=== PATIENT | male | born 1940 | race African-American/Black ===

== ENCOUNTER 2018-11-17 10:00 | Emergency (ER) | payer MEDICARE ==
[~2018-11-17] VITALS: Ht 165.1 cm; Wt 72.0 kg
[2018-11-17 10:05] VITALS: BP 112/60
== END 2018-11-17 10:37 | disposition home or self-care (01) ==
LOC: ER 10:00
DX: T16.2XXA Foreign body in left ear, initial encounter (principal); I12.0 Hypertensive chronic kidney disease with stage 5 chronic kidney disease or end stage renal disease; N18.6 End stage renal disease; X58.XXXA Exposure to other specified factors, initial encounter; Y93.89 Activity, other specified; Y92.89 Other specified places as the place of occurrence of the external cause; Y99.8 Other external cause status; Z99.2 Dependence on renal dialysis
CPT/HCPCS: 99283

== ENCOUNTER 2020-11-11 09:48 | Inpatient (IN) | payer MEDICARE ==
[~2020-11-11] VITALS: Ht 172.7 cm; Wt 83.0 kg
[2020-11-11 10:42] LABS: BASOPHILS % 0.4 % (0.0-2.0); EOSINOPHILS % 1.1 % (0.0-5.0); HEMATOCRIT. 35.6 % (42.0-52.0); LYMPHOCYTES % 19.1 % (20.0-50.0); MEAN CORPUSCULAR HEMOGLOBIN 33.3 pg (28.0-32.0); MEAN CORPUSCULAR VOLUME 98.7 fL (80.0-94.0); MEAN PLATELET VOLUME 9.2 fl (7.4-10.4); MONOCYTES % 13.3 % (2.0-8.0); NEUTROPHILS % 66.1 % (40.0-76.0); PLATELET 110 x1000/uL (130-400); RED CELL DISTRIBUTION WIDTH 15.2 % (11.6-14.6)
[2020-11-11 10:55] LABS: INR 1.1; PROTHROMBIN TIME 11.3 sec (9.6-11.0)
[2020-11-11 10:58] LABS: CHLORIDE 101 mEq/L (98-107)
[2020-11-11] MEDS ORDERED: LORAZEPAM 2MG/ML CPJ IV ONE (11:00)
[2020-11-11] MEDS ORDERED: SODIUM CHLORIDE 0.9% 1,000 ML IV ONE (11:00)
[2020-11-11] MEDS ORDERED: SODIUM CHLORIDE 0.9% 500 ML IV ONE (11:15)
[2020-11-11] MEDS ORDERED: LEVETIRACETAM 100MG/ML ORAL SYR PO ONE (13:15)
[2020-11-11] MEDS ORDERED: LEVETIRACETAM 500MG TABLET PO NR (13:45)
[2020-11-11 17:04] LABS: HEMATOCRIT 28.1 % (42.0-52.0); HEMOGLOBIN 9.7 g/dL (14.0-18.0); MEAN CORPUSCULAR HEMOGLOBIN 33.8 pg (28.0-32.0); MEAN CORPUSCULAR VOLUME 98.2 fL (80.0-94.0); PLATELET 95 x1000/uL (130-400); RED BLOOD CELL COUNT 2.86 mill/uL (4.7-6.1); RED CELL DISTRIBUTION WIDTH 14.6 % (11.6-14.6)
[2020-11-11] MEDS ORDERED: HYDROCODONE/ACETAMINOPHEN 5/325MG TABLET PO PRN (18:30)
[2020-11-11] MEDS ORDERED: GUAIFENESIN 200MG/10ML SUGAR FREE UDC PO PRN (18:30)
[2020-11-11] MEDS ORDERED: DOCUSATE SODIUM 100MG CAPSULE PO PRN (18:30)
[2020-11-11] MEDS ORDERED: ACETAMINOPHEN 325MG TABLET PO PRN (18:30)
[2020-11-11] MEDS ORDERED: ONDANSETRON HCL 4MG/2ML INJ IV PRN (18:30)
[2020-11-11] MEDS ORDERED: LORAZEPAM 2MG/ML CPJ IV PRN (18:30)
[2020-11-12 07:25] LABS: CHLORIDE 106 mEq/L (98-107)
[2020-11-12 11:00] VITALS: BP 127/38
[2020-11-12 11:52] VITALS: BP 127/38
[2020-11-12 12:16] LABS: BASOPHILS % 0.6 % (0.0-2.0); EOSINOPHILS % 0.8 % (0.0-5.0); HEMATOCRIT. 24.8 % (42.0-52.0); HEMOGLOBIN. 8.7 g/dL (14.0-18.0); LYMPHOCYTES % 17.8 % (20.0-50.0); MEAN CORPUSCULAR HEMOGLOBIN 34.2 pg (28.0-32.0); MEAN CORPUSCULAR VOLUME 98.2 fL (80.0-94.0); MEAN PLATELET VOLUME 8.9 fl (7.4-10.4); MONOCYTES % 9.6 % (2.0-8.0); NEUTROPHILS % 71.2 % (40.0-76.0); PLATELET 111 x1000/uL (130-400); RED BLOOD CELL COUNT 2.53 mill/uL (4.7-6.1); RED CELL DISTRIBUTION WIDTH 15.2 % (11.6-14.6)
[2020-11-12] MEDS: AMLODIPINE 10MG TABLET PO SCH (14:16)
[2020-11-12 16:00] VITALS: BP 103/47
[2020-11-12] MEDS ORDERED: FINA1TAB18 MT (18:54)
[2020-11-12] MEDS ORDERED: COR3 MT (18:54)
[2020-11-12] MEDS ORDERED: NEPVIT MT (18:54)
[2020-11-12] MEDS ORDERED: ASPI-1406 MT (18:54)
[2020-11-12] MEDS ORDERED: TAMS-11 PO (18:54)
[2020-11-12] MEDS ORDERED: FOLI-43 MT (18:54)
[2020-11-12 20:00] VITALS: BP 122/60
[2020-11-12] MEDS: LEVETIRACETAM 500MG TABLET PO SCH (21:31)
[2020-11-13] VITALS: BP 105/38
[2020-11-13 04:00] VITALS: BP 101/40
[2020-11-13 08:00] VITALS: BP 102/47
[2020-11-13] MEDS: LEVETIRACETAM 500MG TABLET PO SCH (09:33)
[2020-11-13] MEDS: AMLODIPINE 10MG TABLET PO SCH (09:34)
[2020-11-13 11:12] VITALS: BP 115/59
[2020-11-13 12:00] VITALS: BP 115/59
== END 2020-11-13 14:40 | disposition home or self-care (01) | DRG 314 ==
LOC: ER 10:05 → MICUSO 17:25 → EDBEDREQSVC 21:09 → EDBEDREQTM 21:09 → 5WST 11-12 09:12
PROVIDERS: ADMIT Hospitalist; ATTEND Hospitalist
PROC: 5A1D70Z Performance of Urinary Filtration, Intermittent, Less than 6 Hours Per Day (ICD-10-PCS; principal; 2020-11-11)
PROC: 4A00X4Z Measurement of Central Nervous Electrical Activity, External Approach (ICD-10-PCS; 2020-11-13)
DX: T82.838A Hemorrhage due to vascular prosthetic devices, implants and grafts, initial encounter (principal); E43 Unspecified severe protein-calorie malnutrition; N18.6 End stage renal disease; D62 Acute posthemorrhagic anemia; E87.1 Hypo-osmolality and hyponatremia; I12.0 Hypertensive chronic kidney disease with stage 5 chronic kidney disease or end stage renal disease; G40.909 Epilepsy, unspecified, not intractable, without status epilepticus; E87.5 Hyperkalemia; D69.6 Thrombocytopenia, unspecified; Y84.1 Kidney dialysis as the cause of abnormal reaction of the patient, or of later complication, without mention of misadventure at the time of the procedure; Y92.89 Other specified places as the place of occurrence of the external cause; Z99.2 Dependence on renal dialysis; Z68.27 Body mass index [BMI] 27.0-27.9, adult; Z79.899 Other long term (current) drug therapy
CPT/HCPCS: 36415; 80053; 85025; 85027; 86850; 86900; 93005; 95816; 99291; J7030; J7040

== ENCOUNTER 2020-12-05 07:06 | Inpatient (IN) | payer MEDICARE ==
[2020-12-05] VITALS (7 sets, daily range): BP systolic 105–130; BP diastolic 43–67
[~2020-12-05] VITALS: Ht 165.1 cm; Wt 80.8 kg
[~2020-12-05 07:06] MED LIST: ASPI-1406 MT; COR3 MT; FINA1TAB18 MT; FOLI-43 MT; NEPVIT MT; TAMS-11 PO
[2020-12-05 07:28] LABS: HEMATOCRIT. 22.2 % (42.0-52.0); HEMOGLOBIN. 7.4 g/dL (14.0-18.0); LYMPHOCYTES % 44.1 % (20.0-50.0); MEAN CORPUSCULAR HEMOGLOBIN 34.4 pg (28.0-32.0); MEAN CORPUSCULAR VOLUME 104.1 fL (80.0-94.0); MEAN PLATELET VOLUME 8.1 fl (7.4-10.4); MONOCYTES % 14.6 % (2.0-8.0); NEUTROPHILS % 34.3 % (40.0-76.0); PLATELET 179 x1000/uL (130-400); RED BLOOD CELL COUNT 2.14 mill/uL (4.7-6.1); RED CELL DISTRIBUTION WIDTH 14.2 % (11.6-14.6)
[2020-12-05 07:37] LABS: CHLORIDE 108 mEq/L (98-107)
[2020-12-05] MEDS ORDERED: LIDOCAINE HCL/EPINEPHRINE 1%-EPI 1:100,000 50 ML VIAL INFIL ONE (07:45)
[2020-12-05] MEDS ORDERED: TRANEXAMIC ACID 1,000 MG/10 ML IV ONE (08:00)
[2020-12-05 08:23] LABS: INR 1.1; PARTIAL THROMBOPLASTIN TIME 23.6 sec (23.4-31.0); PROTHROMBIN TIME 11.8 sec (9.6-11.0)
[2020-12-05] MEDS ORDERED: TRANEXAMIC ACID 1,000 MG in SODIUM CHLORIDE 0.9% 100 ML IV SCH (08:30)
[2020-12-05 08:47] LABS: BG BASE EXCESS -2.6 mmol/L (-2.0-2.0); BG CARBOXYHEMOGLOBIN 0.3 % (0.5-1.5); BG DEOXYHEMOGLOBIN 2.8 % (0.0-5.0); BG FRACTION INSPIRED OXYGEN 21; BG HCO3 ACT 21.3 mmol/L (22.0-26.0); BG METHEMOGLOBIN 0.1 % (0.0-1.5); BG OXYGEN SATURATION 97.2 % (92.0-98.5); BG OXYHEMOGLOBIN 96.8 % (94.0-97.0); BG PCO2 33.3 mmHg (35.0-45.0); BG PH 7.423 (7.350-7.450); BG PO2 103.1 mmHg (75.0-100.0); BG SAMPLE SITE RIGHT BRACHIAL; BG TOTAL HEMOGLOBIN 9.6 g/dL (12.0-18.0); BG VENT MODE ROOM AIR
[2020-12-05 10:10] LABS: HEMATOCRIT 26.8 % (42.0-52.0); HEMOGLOBIN 9.2 g/dL (14.0-18.0); MEAN CORPUSCULAR HEMOGLOBIN 33.1 pg (28.0-32.0); MEAN CORPUSCULAR VOLUME 96.2 fL (80.0-94.0); PLATELET 144 x1000/uL (130-400); RED BLOOD CELL COUNT 2.78 mill/uL (4.7-6.1); RED CELL DISTRIBUTION WIDTH 17.7 % (11.6-14.6)
[2020-12-05] MEDS ORDERED: DIPHENHYDRAMINE 50MG/ML VIAL IV PRN (10:30)
[2020-12-05] MEDS ORDERED: IPRATROPIUM/ALBUTEROL 0.5-3(2.5)MG/3ML NEB NEB PRN (10:30)
[2020-12-05] MEDS ORDERED: GUAIFENESIN 200MG/10ML SUGAR FREE UDC PO PRN (10:30)
[2020-12-05] MEDS ORDERED: DEXTROSE 50% WATER 50ML SYRINGE IV PRN (10:30)
[2020-12-05] MEDS ORDERED: TRAMADOL 50MG TABLET PO PRN (10:30)
[2020-12-05] MEDS ORDERED: NITROGLYCERIN 0.4MG TABLET SL SL PRN (10:30)
[2020-12-05] MEDS ORDERED: DESMOPRESSIN ACETATE 4MCG/ML AMP IV ONE (10:30)
[2020-12-05] MEDS ORDERED: ONDANSETRON HCL 4MG/2ML INJ IV PRN (10:30)
[2020-12-05] MEDS ORDERED: DOCUSATE SODIUM 100MG CAPSULE PO PRN (10:30)
[2020-12-05] MEDS ORDERED: ACETAMINOPHEN 325MG TABLET PO PRN ×2 (10:30)
[2020-12-05] MEDS ORDERED: DESMOPRESSIN ACETATE IVPB 20 MCG in SODIUM CHLORIDE 0.9% 50 ML IV SCH (11:00)
[2020-12-05] MEDS ORDERED: LIDOCAINE HCL 1% 20ML VIAL (Pyxis) INJ ONE ×2 (12:11→17:30)
[2020-12-05] MEDS ORDERED: SODIUM BICARBONATE 4% (2.4MEQ) 5ML VIAL IV ONE (12:11)
[2020-12-05] MEDS: BLOOD SUGAR DIAGNOSTIC STRIP TEST SCH ×3 (12:30→21:00)
[2020-12-05] MEDS: INSULIN LISPRO 100 UNITS/ML SUBCUT SCH ×3 (13:00→21:00)
[2020-12-05] MEDS ORDERED: HEPARIN 1000 UNITS/ML 10ML ONE (13:38)
[2020-12-05 16:09] LABS: CREATINE KINASE 50 IU/L (39-308)
[2020-12-05 16:11] LABS: CREATINE KINASE MB FRACTION < 1.0 ng/mL (0.5-3.6)
[2020-12-05] MEDS ORDERED: BACITRACIN 15GM TUBE TOP ONE (17:30)
[2020-12-05] MEDS ORDERED: BUPIVACAINE HCL/PF 0.5% (5MG/ML) 10ML ONE (17:31)
[2020-12-05] MEDS ORDERED: SODIUM CHLORIDE 0.9% 250 ML IV ONE (17:31)
[2020-12-05] MEDS ORDERED: SODIUM CHLORIDE 0.9% 1,000 ML ONE (17:31)
[2020-12-05] MEDS ORDERED: SODIUM CHLORIDE 0.9% IRRIG SOL 1,000 ML IR ONE (17:31)
[2020-12-05] MEDS ORDERED: THROMBIN (BOVINE) 5000 UNITS/VIAL TOP ONE (17:31)
[2020-12-05] MEDS ORDERED: BACITRACIN 50,000 UNITS/VIAL ONE (17:31)
[2020-12-05] MEDS ORDERED: SODIUM CHLORIDE 0.9% INJ 10ML FLUSH IVF ONE (17:31)
[2020-12-05] MEDS ORDERED: HEPARIN SODIUM 1,000 UNIT/1ML VIAL IV ONE (17:33)
[2020-12-05] MEDS ORDERED: ZOLPIDEM TARTRATE 5MG TABLET PO PRN (18:00)
[2020-12-05] MEDS ORDERED: PHENYLEPHRINE HCL 10 MG/ML 1ML (IV VIAL) IV ONE ×2 (18:50→18:52)
[2020-12-05] MEDS ORDERED: DEXAMETHASONE 4MG/ML 1ML VIAL ONE (18:51)
[2020-12-05] MEDS ORDERED: ROCURONIUM BROMIDE 10MG/ML VIAL 5ML IV ONE (19:06)
[2020-12-05] MEDS ORDERED: SODIUM CHLORIDE 0.9% 10ML VIAL ONE (19:13)
[2020-12-05] MEDS ORDERED: CEFAZOLIN SODIUM 1000MG/VIAL ONE (19:13)
[2020-12-05] MEDS ORDERED: GLYCOPYRROLATE 0.2 MG/ML 2ML VIAL ONE (19:22)
[2020-12-05] MEDS ORDERED: EPHEDRINE SULFATE 50MG/ML VIAL ONE (19:26)
[2020-12-05] MEDS ORDERED: ESMOLOL HCL 10MG/ML 10ML VIAL IV ONE (20:21)
[2020-12-05] MEDS ORDERED: HYDROMORPHONE HCL/PF 2MG/ML CPJ IM PRN (20:30)
[2020-12-05] MEDS ORDERED: ONDANSETRON HCL 4MG/2ML INJ ONE ×2 (20:36→20:37)
[2020-12-05] MEDS ORDERED: HYDROMORPHONE HCL/PF 2MG/ML CPJ IV PRN (20:45)
[2020-12-05] MEDS: FAMOTIDINE 20MG TABLET PO SCH (21:00)
[2020-12-06] VITALS (12 sets, daily range): BP systolic 97–126; BP diastolic 40–59
[2020-12-06 02:11] LABS: CREATINE KINASE 43 IU/L (39-308); CREATINE KINASE MB FRACTION < 1.0 ng/mL (0.5-3.6)
[2020-12-06] MEDS ORDERED: DILTIAZEM HCL 30MG TABLET PO SCH (03:30)
[2020-12-06] MEDS: DILTIAZEM HCL 30MG TABLET PO SCH ×4 (05:36→23:38)
[2020-12-06 06:16] LABS: BASOPHILS % 0.3 % (0.0-2.0); EOSINOPHILS % 0.5 % (0.0-5.0); HEMATOCRIT. 24.9 % (42.0-52.0); HEMOGLOBIN. 8.5 g/dL (14.0-18.0); LYMPHOCYTES % 11.8 % (20.0-50.0); MEAN CORPUSCULAR HEMOGLOBIN 33.6 pg (28.0-32.0); MEAN CORPUSCULAR VOLUME 98.2 fL (80.0-94.0); MEAN PLATELET VOLUME 7.9 fl (7.4-10.4); MONOCYTES % 3.6 % (2.0-8.0); NEUTROPHILS % 83.8 % (40.0-76.0); PLATELET 150 x1000/uL (130-400); RED BLOOD CELL COUNT 2.53 mill/uL (4.7-6.1)
[2020-12-06 06:32] LABS: CHLORIDE 110 mEq/L (98-107)
[2020-12-06] MEDS: BLOOD SUGAR DIAGNOSTIC STRIP TEST SCH ×4 (07:47→21:00)
[2020-12-06] MEDS: INSULIN LISPRO 100 UNITS/ML SUBCUT SCH ×4 (08:28→21:00)
[2020-12-06] MEDS: FAMOTIDINE 20MG TABLET PO SCH (20:44)
[2020-12-07] VITALS (12 sets, daily range): BP systolic 103–135; BP diastolic 45–73
[2020-12-07 05:55] LABS: BASOPHILS % 0.3 % (0.0-2.0); EOSINOPHILS % 0.4 % (0.0-5.0); HEMOGLOBIN. 7.8 g/dL (14.0-18.0); LYMPHOCYTES % 12.8 % (20.0-50.0); MEAN CORPUSCULAR HEMOGLOBIN 33.3 pg (28.0-32.0); MEAN PLATELET VOLUME 7.9 fl (7.4-10.4); MONOCYTES % 8.7 % (2.0-8.0); NEUTROPHILS % 77.8 % (40.0-76.0); PLATELET 163 x1000/uL (130-400); RED BLOOD CELL COUNT 2.35 mill/uL (4.7-6.1)
[2020-12-07] MEDS: INSULIN LISPRO 100 UNITS/ML SUBCUT SCH ×4 (08:00→21:00)
[2020-12-07] MEDS: BLOOD SUGAR DIAGNOSTIC STRIP TEST SCH ×4 (08:16→21:52)
[2020-12-07] MEDS: DILTIAZEM HCL 30MG TABLET PO SCH ×2 (12:00→18:00)
[2020-12-07 12:32] LABS: HEMOGLOBIN 7.7 g/dL (14.0-18.0); MEAN CORPUSCULAR VOLUME 98.6 fL (80.0-94.0); PLATELET 168 x1000/uL (130-400); RED BLOOD CELL COUNT 2.33 mill/uL (4.7-6.1); RED CELL DISTRIBUTION WIDTH 17.2 % (11.6-14.6)
[2020-12-07] MEDS: FAMOTIDINE 20MG TABLET PO SCH (21:28)
[2020-12-08] VITALS (27 sets, daily range): BP systolic 92–153; BP diastolic 48–79
[2020-12-08] MEDS: DILTIAZEM HCL 30MG TABLET PO SCH ×4 (06:00→17:52)
[2020-12-08] MEDS: INSULIN LISPRO 100 UNITS/ML SUBCUT SCH ×3 (08:00→17:49)
[2020-12-08] MEDS: BLOOD SUGAR DIAGNOSTIC STRIP TEST SCH ×3 (08:23→17:49)
[2020-12-08] MEDS ORDERED: LIDOCAINE HCL 1% 20ML VIAL (Pyxis) INJ ONE ×2 (12:38→14:27)
[2020-12-08] MEDS ORDERED: SODIUM BICARBONATE 4% (2.4MEQ) 5ML VIAL IV ONE (12:38)
[2020-12-08] MEDS ORDERED: HEPARIN 1000 UNITS/ML 10ML ONE (12:38)
[2020-12-08] MEDS ORDERED: CEFAZOLIN 1000MG PREMIX 50 ML IV NR (12:45)
[2020-12-08] MEDS ORDERED: CEFAZOLIN 1000MG PREMIX 50 ML IV ONE (12:51)
[2020-12-08] MEDS ORDERED: FENTANYL CITRATE/PF 50MCG/ML 2ML VIAL ONE (13:35)
[2020-12-08] MEDS ORDERED: IOHEXOL-300 50 ML BOTTLE IV ONE (13:57)
[2020-12-08] MEDS ORDERED: CEFAZOLIN SODIUM 500MG/VIAL IV SCH (14:00)
[2020-12-08] MEDS ORDERED: CEFAZOLIN 1000MG PREMIX 50 ML IV SCH (14:00)
[2020-12-08] MEDS ORDERED: FENTANYL CITRATE/PF 50MCG/ML 2ML VIAL IV SCH (14:45)
[2020-12-08 16:41] LABS: HEMATOCRIT 29.2 % (42.0-52.0); HEMOGLOBIN 9.7 g/dL (14.0-18.0); MEAN CORPUSCULAR VOLUME 102.5 fL (80.0-94.0); PLATELET 175 x1000/uL (130-400); RED BLOOD CELL COUNT 2.84 mill/uL (4.7-6.1); RED CELL DISTRIBUTION WIDTH 17.2 % (11.6-14.6)
[2020-12-09] MEDS ORDERED: CEFAZOLIN 1000MG PREMIX 50 ML IV SCH (09:00)
== END 2020-12-08 19:04 | disposition home or self-care (01) | DRG 252 ==
LOC: ER 07:06 → 5EST 08:32 → EDBEDREQ 08:38 → ENRESERV 09:28
PROVIDERS: ADMIT Internal Medicine; ATTEND Internal Medicine
PROC: 05BC0ZZ Excision of Left Basilic Vein, Open Approach (ICD-10-PCS; principal; 2020-12-05)
PROC: 06HY33Z Insertion of Infusion Device into Lower Vein, Percutaneous Approach (ICD-10-PCS; 2020-12-05)
PROC: B54BZZA Ultrasonography of Right Lower Extremity Veins, Guidance (ICD-10-PCS; 2020-12-05)
PROC: 30233K1 Transfusion of Nonautologous Frozen Plasma into Peripheral Vein, Percutaneous Approach (ICD-10-PCS; 2020-12-05)
PROC: 30233N1 Transfusion of Nonautologous Red Blood Cells into Peripheral Vein, Percutaneous Approach (ICD-10-PCS; 2020-12-05)
PROC: 5A1D70Z Performance of Urinary Filtration, Intermittent, Less than 6 Hours Per Day (ICD-10-PCS; 2020-12-06)
PROC: 0JH63XZ Insertion of Tunneled Vascular Access Device into Chest Subcutaneous Tissue and Fascia, Percutaneous Approach (ICD-10-PCS; 2020-12-08)
PROC: 02HV33Z Insertion of Infusion Device into Superior Vena Cava, Percutaneous Approach (ICD-10-PCS; 2020-12-08)
PROC: B548ZZA Ultrasonography of Superior Vena Cava, Guidance (ICD-10-PCS; 2020-12-08)
PROC: B5181ZA Fluoroscopy of Superior Vena Cava using Low Osmolar Contrast, Guidance (ICD-10-PCS; 2020-12-08)
PROC: 5A1D70Z Performance of Urinary Filtration, Intermittent, Less than 6 Hours Per Day (ICD-10-PCS; 2020-12-08)
PROC: 06PYX3Z Removal of Infusion Device from Lower Vein, External Approach (ICD-10-PCS; 2020-12-08)
DX: T82.838A Hemorrhage due to vascular prosthetic devices, implants and grafts, initial encounter (principal); E43 Unspecified severe protein-calorie malnutrition; N18.6 End stage renal disease; R57.8 Other shock; D62 Acute posthemorrhagic anemia; I12.0 Hypertensive chronic kidney disease with stage 5 chronic kidney disease or end stage renal disease; I95.9 Hypotension, unspecified; Z20.822 Contact with and (suspected) exposure to COVID-19; E11.22 Type 2 diabetes mellitus with diabetic chronic kidney disease; Y82.8 Other medical devices associated with adverse incidents; Y84.1 Kidney dialysis as the cause of abnormal reaction of the patient, or of later complication, without mention of misadventure at the time of the procedure; Z79.4 Long term (current) use of insulin; Z99.2 Dependence on renal dialysis; Y92.89 Other specified places as the place of occurrence of the external cause; Z68.29 Body mass index [BMI] 29.0-29.9, adult
CPT/HCPCS: 36415; 36556; 36558; 36589; 36600; 71045; 76937; 77001; 80048; 80053; 82375; 82550; 82553; 82805; 82962; 83036; 83735; 84100; 84484; 85025; 85027; 86850; 86900; 86920; 86927; 87426; 93005; 93970; 97166; 99152; 99153; 99291; C1730; C1750; C1752; C1768; C1769; C1887; J0690; J1100; J1170; J1642; J1644; J1815; J2370; J2405; J2597; J3010; J3490; J7030; J7040; J7050; L8514; P9016; P9017; Q9967; G0500